=== PATIENT | male | born 1980 | race Caucasian/White ===

== ENCOUNTER 2020-05-05 10:15 | Inpatient (IN) | payer OTHER ==
--- NOTE | 2020-05-05 11:07 | BHS.RME ---
Substance Use & Tx History - Substance Use History Heroin Substance amount: 9-15 bags Frequency of use: Daily Substance route: Inhalation (ex: sniffing or snorting) Date of Last Use: 05/05/20 (First use age 38 y. NO ODs. NO Narcan at home) Cocaine-Crack Substance amount: 2 grams powder or $100 to $150 crack Frequency of use: Daily Substance route: Inhalation (ex: sniffing or snorting), Smoking Date of Last Use: 05/05/20 (First use age 26 y) Xanax Substance amount: 2-4 sticks of 2 mg each stick Frequency of use: Daily Substance route: Oral Date of Last Use: 05/04/20 (First use age 21 y) Nicotine Substance amount: 1/2 ppd Frequency of use: Daily Substance route: Smoking Date of Last Use: 05/05/20 (First use age 13y) - Last Treatment Date of last treatment: 2010 at [facility]. 3 mos ago in [place] Where was last treatment: Detox Physical/Psych/Mental Status - Behavior General Behavior: Decreased activity Eye Contact: Normal - Cooperativeness Cooperativeness: Cooperative - Thinking Thought Processes: Tight Thought content: Future oriented - Physical Health Problems Is patient presently having any pain?: No Does patient presently have any injuries (include location): No Does patient currently have a fever: No COWS - Scale Resting Pulse: 0= [place] 80 or Below Sweatin= Chills/Flushing Restless Observation: 0= Sits Still Pupil Size: 0= Normal to Room Light Bone or Joint Aches: 1= Mild Discomfort Runny Nose/ Eye Tearin= Nasal Congestion GI Upset > 30mins: 2= Nausea/Diarrhea Tremor Observation: 2= Slight Tremor Visible Yawning Observation: 0= None Anxiety or Irritability: 2=Irritable/Anxious Goose Flesh Skin: 0=Smooth Skin COWS Score: 9
[2020-05-05 12:17] VITALS: BMI 56.8
--- NOTE | 2020-05-05 12:38 | HP ---
COWS - Scale Resting Pulse: 0= [place] 80 or Below Sweatin= Chills/Flushing Restless Observation: 0= Sits Still Pupil Size: 0= Normal to Room Light Bone or Joint Aches: 1= Mild Discomfort Runny Nose/ Eye Tearin= Nasal Congestion GI Upset > 30mins: 2= Nausea/Diarrhea Tremor Observation: 2= Slight Tremor Visible Yawning Observation: 0= None Anxiety or Irritability: 2=Irritable/Anxious Goose Flesh Skin: 0=Smooth Skin COWS Score: 9 CIWA Score - Admission Criteria OASAS Guidelines: Admission for Medically Managed Detox: Requires at least one of the followin. CIWA greater than 12 2. Seizures within the past 24 hours 3. Delirium tremens within the past 24 hours 4. Hallucinations within the past 24 hours 5. Acute intervention needed for co occurring medical disorder 6. Acute intervention needed for co occurring psychiatric disorder 7. Severe withdrawal that cannot be handled at a lower level of care (continued vomiting, continued diarrhea, abnormal vital signs) requiring intravenous medication and/or fluids 8. Admitting History and Physical - Admission Chief Complaint: Mr. Barry is a 39 yo man who presents to [facility] stating he is here "trying to get off heroin". He admits to polysubstance use. He requests admission to detox. History of Present Illness: Mr. Barry is a 39 yo man who presents to [facility] stating he is here "trying to get off heroin". He admits to polysubstance use. He requests admission to detox. PMH/PSH/Psych/Legal: none Legal: none Substance Use History Heroin Substance amount: 9-15 bags Frequency of use: Daily Substance route: Inhalation (ex: sniffing or snorting) Date of Last Use: 05/05/20 (First use age 38 y. NO ODs. NO Narcan at home) Cocaine-Crack Substance amount: 2 grams powder or $100 to $150 crack Frequency of use: Daily Substance route: Inhalation (ex: sniffing or snorting), Smoking Date of Last Use: 05/05/20 (First use age 26 y) Xanax Substance amount: 2-4 sticks of 2 mg each stick Frequency of use: Daily Substance route: Oral Date of Last Use: 05/04/20 (First use age 21 y) Nicotine Substance amount: 1/2 ppd Frequency of use: Daily Substance route: Smoking Date of Last Use: 05/05/20 (First use age 13y) Methadone: denies use - Last Treatment Date of last treatment: [address] [facility]. 3 mos ago in [place] Where was last treatment: Detox Clyde Barry, 1980 Search Date: 05/05/2020 13:06:50 PM The Drug Utilization Report below displays all of the controlled substance prescriptions, if any, that your patient has filled in the last twelve months. The information displayed on this report is compiled from pharmacy submissions to the Department, and accurately reflects the information as submitted by the pharmacies. This report was requested by: Nora Prince | Reference #: [id number] There are no results for the search terms that you entered. Meets criteria: poor recovery environment, high risk of relapse, high risk of overdose History Source: Patient Limitations to Obtaining History: Other (falls asleep easily) - Smoking History Smoking history: Current every day smoker Admission [facility] Allergies/Adverse Reactions: Allergies Allergy/AdvReac Type Severity Reaction Status Date / Time No Known Allergies Allergy Verified 05/05/20 12:13 Exam Limitations: No Limitations - Ebola screening Have you traveled outside of the country in the last 21 days: No Have you been sick,other than usual withdrawal symptoms: No Do you have a fever: No - Review of Systems Constitutional: Changes in sleep (pt aware he has breathing problems when sleeping, improves with side lying position), Weight Stable (morbid obesity) EENT: reports: Nose Congestion Respiratory: reports: No Symptoms reported Cardiac: reports: No Symptoms Reported GI: reports: No Symptoms Reported : reports: No Symptoms Reported Musculoskeletal: reports: Other (swelling in both legs he attributes to being on his feet) Integumentary: reports: Other (erythma of skin bilateral inguinal and lower abdominal area, he attributes to "heat rash") Neuro: reports: No Symptoms reported Endocrine: reports: No Symptoms Reported Hematology: reports: No Symptoms Reported Psychiatric: reports: Anxious Patient History - Patient Medical History Hx Asthma: No Hx Chronic Obstructive Pulmonary Disease (COPD): No Hx Cardiac Disorders: No Hx Hypertension: No Hx Seizures: No Hx Diabetes: No Hx Gastrointestinal Disorders: No Hx Genitourinary Disorders: No Hx Sexually Transmitted Disorders: No Hx Renal Disease (ESRD): No Hx Depression: No Hx Suicide Attempt: No Hx Schizophrenia: No - Patient Surgical History Past Surgical History: No Hx Neurologic Surgery: No Hx Cataract Extraction: No Hx Cardiac Surgery: No Hx Lung Surgery: No Hx Breast Surgery: No Hx Breast Biopsy: No Hx Abdominal Surgery: No Hx Appendectomy: No Hx Cholecystectomy: No Hx Genitourinary Surgery: No Hx Section: No Hx Orthopedic Surgery: No Anesthesia Reaction: No - Smoking Cessation Smoking history: Current every day smoker Have you smoked in the past 12 months: Yes Aproximately how many cigarettes per day: 10 Hx Chewing Tobacco Use: No Initiated information on smoking cessation: Yes 'Breaking Loose' booklet given: 05/05/20 - Substances abused Heroin Substance route: Inhalation Frequency: Daily Amount used: 9-15 BAGS Age of first use: 38 Date of last use: 05/05/20 Cocaine Substance route: Inhalation Frequency: Daily Amount used: 2 GRAMS Age of first use: 26 Date of last use: 05/05/20 Alprazolam (Xanax) Substance route: Oral Frequency: Daily Amount used: 2-4 STICKS Age of first use: 21 Date of last use: 05/04/20 Admission Physical Exam BHS - Vital Signs Vital Signs: Vital Signs - 24 hr 05/05/20 12:13 Temperature 98.0 F Pulse Rate 72 Respiratory 14 Rate Blood Pressure 133/74 - Physical General Appearance: Yes: No Apparent Distress, Other (obese) HEENTM: Yes: EOMI, Hearing grossly Normal, Normocephalic, Normal Voice Respiratory: Yes: Lungs Clear, No Respiratory Distress, No Accessory Muscle Use, Other (falls asleep easily, has 8 sec apnea noted, loud sonorous respirations) Neck: Yes: Within Normal Limits, Supple Breast: Yes: Breast Exam Deferred Cardiology: Yes: Regular Rhythm, Regular Rate Abdominal: Yes: Non Tender, Soft, Decreased BS, Protuberent Genitourinary: Yes: Other (deferred) Back: Yes: Normal Inspection Musculoskeletal: Yes: Gait Steady Extremities: Yes: Swelling (bilateral feet and lower legs, nonpitting, slight erythema, no cords, no streaks, no varicosities) Neurological: Yes: Alert, Normal Response Integumentary: Yes: Rash (red inguinal and lower abdomen, no drainage, no pustules/macules) - Diagnostic (1) Cocaine abuse Current Visit: Yes Status: Acute Comment: 1. substance use education (2) Sedative, hypnotic or anxiolytic use disorder, mild, abuse Current Visit: Yes Status: Acute Comment: 1. Valium detox protocol (3) Nicotine dependence Current Visit: Yes Status: Acute Qualifiers: Nicotine product type: cigarettes Substance use status: uncomplicated Qualified Code(s): F17.210 - Nicotine dependence, cigarettes, uncomplicated Comment: 1. Nicotine replacement therapy 2. Smoking cessation pamphlet (4) Opioid withdrawal Current Visit: Yes Status: Acute Comment: 1. Admit, detox, methadone 2. EKG 3. Routine labs Cleared for Admission S - Detox or Rehab [facility] Level of Care: Medically Managed Detox Regimen/Protocol: Methadone, Valium Breathalyzer - Breathalyzer Breathalyzer: 0 Urine Drug Screen - Test Device Lot number: [id number] Expiration date: 11/26/21 - Control Is test valid?: Yes - Results Drug screen NEGATIVE: No Urine drug screen results: FELIZ-Cocaine, FEN-Fentanyl, MOP-Opiates, MTD- Methadone, BZO-Benzodiazepines Inpatient Rehab Admission - Rehab Decision to Admit Inpatient rehab admission?: No
[2020-05-05] MEDS ORDERED: ONDANSETRON *ODT* 4 MG TABLET SL PRN (13:09)
[2020-05-05] MEDS ORDERED: ACETAMINOPHEN 325 MG TABLET (FP) PO PRN ×2 (13:09)
[2020-05-05] MEDS ORDERED: METHADONE HCL 10 MG TABLET (FOR DETOX USE ONLY) PO ONE (13:09)
[2020-05-05] MEDS ORDERED: diazePAM 5 MG TABLET PO PRN (13:09)
[2020-05-05] MEDS ORDERED: METHOCARBAMOL 500 MG TABLET PO PRN (13:09)
[2020-05-05] MEDS ORDERED: BISMUTH SUBSALICYLATE 524 MG/30 ML UD PO PRN (13:09)
[2020-05-05] MEDS ORDERED: MENTHOL/PHENOL 1 EACH UD MM PRN (13:09)
[2020-05-05] MEDS ORDERED: MAGNESIUM HYDROX 2400MG/30ML ORAL SUSPENSION 30 ML CUP PO PRN (13:09)
[2020-05-05] MEDS ORDERED: IBUPROFEN 400 MG TABLET (FP) PO PRN (13:09)
[2020-05-05] MEDS ORDERED: MAG HYDROX/AL HYDROX/SIMETH 30 ML UNIT-DOSE CUP PO PRN (13:09)
[2020-05-05] MEDS ORDERED: NICOTINE POLACRILEX 2 MG GUM BUC PRN (13:09)
[2020-05-05] MEDS ORDERED: MAGNESIUM CITRATE 300 ML BOTTLE PO PRN (13:09)
[2020-05-05] MEDS: NICOTINE 14 MG/24 HOURS TOPICAL PATCH TD SCH (14:19)
[2020-05-05] MEDS: hydrOXYzine PAMOATE 25 MG CAPSULE (FP) PO SCH ×3 (14:26→22:16)
[2020-05-05 14:46] LABS: HEMATOCRIT 37.5 % (35.4-49); HEMOGLOBIN 12.5 GM/dL (11.7-16.9); MCH 29.1 pg (25.7-33.7); MCHC 33.3 g/dl (32.0-35.9); MEAN CELL VOLUME 87.4 fl (80-96); MEAN PLT VOLUME 8.8 fl (7.5-11.1); PLATELET COUNT 255 K/MM3 (134-434); RBC 4.29 M/mm3 (4.00-5.60); RDW 14.8 % (11.9-15.9); WHITE BLOOD COUNT 8.7 K/mm3 (4.0-10.0)
[2020-05-05 14:57] LABS: ALBUMIN 3.2 g/dl (3.4-5.0); BILIRUBIN,TOTAL 0.4 mg/dL (0.2-1); CALCIUM 8.2 mg/dL (8.5-10.1); POTASSIUM 3.9 mmol/L (3.5-5.1); TOT PROT 6.6 g/dl (6.4-8.2)
[2020-05-05] MEDS: diazePAM 5 MG TABLET PO SCH ×2 (18:03→22:16)
[2020-05-05] MEDS: THIAMINE HCL 100 MG TABLET (FP) PO SCH (22:16)
[2020-05-05] MEDS: MELATONIN 5 MG TABLETS PO SCH (22:17)
[2020-05-06] MEDS: hydrOXYzine PAMOATE 25 MG CAPSULE (FP) PO SCH (06:38)
[2020-05-06] MEDS: diazePAM 5 MG TABLET PO SCH ×4 (06:38→22:46)
[2020-05-06] MEDS ORDERED: hydrOXYzine PAMOATE 25 MG CAPSULE (FP) PO PRN (08:34)
--- NOTE | 2020-05-06 09:03 | EKG ---
Test Reason : Blood Pressure : / mmHG Vent. Rate : 070 BPM Atrial Rate : 070 BPM P-R Int : 138 ms QRS Dur : 090 ms QT Int : 446 ms P-R-T Axes : 049 018 090 degrees QTc Int : 481 ms NORMAL SINUS RHYTHM CANNOT RULE OUT INFERIOR INFARCT , AGE UNDETERMINED ABNORMAL ECG NO PREVIOUS ECGS AVAILABLE Confirmed by MD AZAEL, ABIMAEL ([id number]) on 05/06/2020 9:02:41 AM Referred By: Confirmed By:ABIMAEL ADDISON MD
[2020-05-06] MEDS ORDERED: METHADONE HCL 5 MG TABLET (FOR DETOX USE ONLY) ONE (09:20)
[2020-05-06] MEDS ORDERED: METHADONE HCL 10 MG TABLET (FOR DETOX USE ONLY) ONE (09:20)
--- NOTE | 2020-05-06 09:50 | PN ---
S CIWA - CIWA Score Nausea/Vomitin Muscle Tremors: 3 Anxiety: 3 Agitation: 2 Paroxysmal Sweats: No Perspiration Orientation: 0-Oriented Tacttile Disturbances: 1-Very Mild Itch/Numbness Auditory Disturbances: 0-None Visual Disturbances: 0-None Headache: 2-Mild CIWA-Ar Total Score: 13 BHS COWS - Scale Resting Pulse: 1= [place] 81-100 Sweatin= No chills or Flushing Restless Observation: 0= Sits Still Pupil Size: 1= Pupils >than Normal Bone or Joint Aches: 2= Severe Diffuse Aches Runny Nose/ Eye Tearin= Runny Nose/Eyes GI Upset > 30mins: 1= Stomach Cramp Tremor Observation of Outstretched Hands: 2= Slight Tremor Visible Yawning Observation: 1= 1-2x During Session Anxiety or Irritability: 2=Irritable/Anxious Goose Flesh Skin: 0=Smooth Skin COWS Score: 12 S Progress Note (SOAP) Subjective: alert,irritable,anxious,interrupted sleep,pain in the body and back Objective: 05/06/20 12:01 Vital Signs Temperature 99.2 F 05/06/20 08:42 Pulse Rate 81 05/06/20 08:42 Respiratory Rate 20 05/06/20 08:42 Blood Pressure 141/100 05/06/20 08:42 O2 Sat by Pulse Oximetry (%) 96 05/06/20 08:42 Laboratory Last Values WBC 8.7 K/mm3 (4.0-10.0) 05/05/20 13:15 RBC 4.29 M/mm3 (4.00-5.60) 05/05/20 13:15 Hgb 12.5 GM/dL (11.7-16.9) 05/05/20 13:15 Hct 37.5 % (35.4-49) 05/05/20 13:15 MCV 87.4 fl (80-96) 05/05/20 13:15 MCH 29.1 pg (25.7-33.7) 05/05/20 13:15 MCHC 33.3 g/dl (32.0-35.9) 05/05/20 13:15 RDW 14.8 % (11.9-15.9) 05/05/20 13:15 Plt Count 255 K/MM3 (134-434) 05/05/20 13:15 MPV 8.8 fl (7.5-11.1) 05/05/20 13:15 Sodium 137 mmol/L (136-145) 05/05/20 13:15 Potassium 3.9 mmol/L (3.5-5.1) 05/05/20 13:15 Chloride 105 mmol/L (98-107) 05/05/20 13:15 Carbon Dioxide 26 mmol/L (21-32) 05/05/20 13:15 Anion Gap 6 MMOL/L (8-16) L 05/05/20 13:15 BUN 13.0 mg/dL (7-18) 05/05/20 13:15 Creatinine 1.0 mg/dL (0.55-1.3) 05/05/20 13:15 Est GFR (CKD-EPI)AfAm 110.17 05/05/20 13:15 Est GFR (CKD-EPI)NonAf 95.05 05/05/20 13:15 Random Glucose 237 mg/dL (74-106) H 05/05/20 13:15 Calcium 8.2 mg/dL (8.5-10.1) L 05/05/20 13:15 Total Bilirubin 0.4 mg/dL (0.2-1) 05/05/20 13:15 AST 20 U/L (15-37) 05/05/20 13:15 ALT 35 U/L (13-61) 05/05/20 13:15 Alkaline Phosphatase 111 U/L (45-117) 05/05/20 13:15 Total Protein 6.6 g/dl (6.4-8.2) 05/05/20 13:15 Albumin 3.2 g/dl (3.4-5.0) L 05/05/20 13:15 Syphilis Serology Non-reactive (NONREACTIVE) 05/05/20 13:15 COVID-19 (GUSTAVO) Not detected (Not Detected) 05/05/20 13:15 Assessment: 05/06/20 12:02 withdrawal symptom Plan: continue detox methadone and valium regimen,fasting glucose in am
[2020-05-06] MEDS ORDERED: METHADONE (DETOX) 20 MG, METHADONE (DETOX) 5 MG PO ONE (10:00)
[2020-05-06] MEDS: NICOTINE 14 MG/24 HOURS TOPICAL PATCH TD SCH (12:08)
[2020-05-06] MEDS: PRENATAL VITAMINS W/ FOLIC ACID TABLET (FP) PO SCH (12:08)
[2020-05-06] MEDS: cloNIDine HCL 0.1 MG TABLET PO PRN (22:45)
[2020-05-06] MEDS: THIAMINE HCL 100 MG TABLET (FP) PO SCH (22:46)
[2020-05-07] MEDS: MELATONIN 5 MG TABLETS PO SCH ×2 (00:25→22:38)
[2020-05-07] MEDS: diazePAM 5 MG TABLET PO SCH ×3 (07:24→22:36)
[2020-05-07] MEDS ORDERED: METHADONE HCL 10 MG TABLET (FOR DETOX USE ONLY) PO ONE (10:00)
[2020-05-07] MEDS: PRENATAL VITAMINS W/ FOLIC ACID TABLET (FP) PO SCH (10:00)
[2020-05-07] MEDS: NICOTINE 14 MG/24 HOURS TOPICAL PATCH TD SCH (10:00)
--- NOTE | 2020-05-07 11:21 | PN ---
S CIWA - CIWA Score Nausea/Vomitin-No Nausea/No Vomiting Muscle Tremors: 3 Anxiety: 2 Agitation: 3 Paroxysmal Sweats: 2 Orientation: 0-Oriented Tacttile Disturbances: 0-None Auditory Disturbances: 0-None Visual Disturbances: 0-None Headache: 0-None Present CIWA-Ar Total Score: 10 BHS COWS - Scale Resting Pulse: 0= [place] 80 or Below Sweatin= Chills/Flushing Restless Observation: 0= Sits Still Pupil Size: 0= Normal to Room Light Bone or Joint Aches: 1= Mild Discomfort Runny Nose/ Eye Tearin= None GI Upset > 30mins: 0= None Tremor Observation of Outstretched Hands: 1= Tremor [place], Not Seen Yawning Observation: 2= >3x During Session Anxiety or Irritability: 1=Feels Anxious/Irritable Goose Flesh Skin: 0=Smooth Skin COWS Score: 6 BHS Progress Note (SOAP) Subjective: sweats groggy tired interrupted sleep Objective: 05/07/20 11:20 Vital Signs Temperature 98.6 F 05/07/20 08:20 Pulse Rate 64 05/07/20 08:20 Respiratory Rate 22 H 05/07/20 08:20 Blood Pressure 167/79 05/07/20 08:20 O2 Sat by Pulse Oximetry (%) 96 05/07/20 08:20 Laboratory Tests 05/05/20 05/05/20 05/05/20 13:15 13:15 13:15 WBC 8.7 RBC 4.29 Hgb 12.5 Hct 37.5 MCV 87.4 MCH 29.1 MCHC 33.3 RDW 14.8 Plt Count 255 MPV 8.8 Sodium 137 Potassium 3.9 Chloride 105 Carbon Dioxide 26 Anion Gap 6 L BUN 13.0 Creatinine 1.0 Est GFR (CKD-EPI)AfAm 110.17 Est GFR (CKD-EPI)NonAf 95.05 Random Glucose 237 H Calcium 8.2 L Total Bilirubin 0.4 AST 20 ALT 35 Alkaline Phosphatase 111 Total Protein 6.6 Albumin 3.2 L Syphilis Serology Non-reactive COVID-19 (GUSTAVO) 05/05/20 13:15 WBC RBC Hgb Hct MCV MCH MCHC RDW Plt Count MPV Sodium Potassium Chloride Carbon Dioxide Anion Gap BUN Creatinine Est GFR (CKD-EPI)AfAm Est GFR (CKD-EPI)NonAf Random Glucose Calcium Total Bilirubin AST ALT Alkaline Phosphatase Total Protein Albumin Syphilis Serology COVID-19 (GUSTAVO) Not detected aaox3 lying in bed no acute distress Assessment: 05/07/20 11:20 withdrawals Plan: continue detox increase fluids
[2020-05-07] MEDS: cloNIDine HCL 0.1 MG TABLET PO PRN ×2 (14:24→22:36)
[2020-05-07] MEDS: THIAMINE HCL 100 MG TABLET (FP) PO SCH (22:36)
[2020-05-08] MEDS: diazePAM 5 MG TABLET PO SCH ×2 (06:24→17:29)
[2020-05-08] MEDS ORDERED: METHADONE HCL 5 MG TABLET (FOR DETOX USE ONLY) ONE (09:21)
[2020-05-08] MEDS ORDERED: METHADONE HCL 10 MG TABLET (FOR DETOX USE ONLY) ONE (09:21)
[2020-05-08] MEDS ORDERED: METHADONE (DETOX) 10 MG, METHADONE (DETOX) 5 MG PO ONE (10:00)
[2020-05-08] MEDS: PRENATAL VITAMINS W/ FOLIC ACID TABLET (FP) PO SCH (12:09)
--- NOTE | 2020-05-08 12:10 | PN ---
S CIWA - CIWA Score Nausea/Vomitin-No Nausea/No Vomiting Muscle Tremors: 2 Anxiety: 2 Agitation: 2 Paroxysmal Sweats: 2 Orientation: 0-Oriented Tacttile Disturbances: 0-None Auditory Disturbances: 0-None Visual Disturbances: 0-None Headache: 0-None Present CIWA-Ar Total Score: 8 BHS COWS - Scale Resting Pulse: 1= [place] 81-100 Sweatin= No chills or Flushing Restless Observation: 0= Sits Still Pupil Size: 0= Normal to Room Light Bone or Joint Aches: 1= Mild Discomfort Runny Nose/ Eye Tearin= None GI Upset > 30mins: 0= None Tremor Observation of Outstretched Hands: 1= Tremor [place], Not Seen Yawning Observation: 2= >3x During Session Anxiety or Irritability: 1=Feels Anxious/Irritable Goose Flesh Skin: 0=Smooth Skin COWS Score: 6 BHS Progress Note (SOAP) Subjective: sweats tired interrupted sleep Objective: 05/08/20 12:09 Vital Signs Temperature 96.8 05/08/20 10:00 Pulse Rate 81 05/08/20 10:00 Respiratory Rate 22 05/08/20 10:00 Blood Pressure 151/67 05/08/20 10:00 O2 Sat by Pulse Oximetry (%) 95 05/08/20 10:00 Laboratory Tests 05/05/20 05/05/20 05/05/20 13:15 13:15 13:15 WBC 8.7 RBC 4.29 Hgb 12.5 Hct 37.5 MCV 87.4 MCH 29.1 MCHC 33.3 RDW 14.8 Plt Count 255 MPV 8.8 Sodium 137 Potassium 3.9 Chloride 105 Carbon Dioxide 26 Anion Gap 6 L BUN 13.0 Creatinine 1.0 Est GFR (CKD-EPI)AfAm 110.17 Est GFR (CKD-EPI)NonAf 95.05 Random Glucose 237 H Calcium 8.2 L Total Bilirubin 0.4 AST 20 ALT 35 Alkaline Phosphatase 111 Total Protein 6.6 Albumin 3.2 L Syphilis Serology Non-reactive COVID-19 (GUSTAVO) 05/05/20 13:15 WBC RBC Hgb Hct MCV MCH MCHC RDW Plt Count MPV Sodium Potassium Chloride Carbon Dioxide Anion Gap BUN Creatinine Est GFR (CKD-EPI)AfAm Est GFR (CKD-EPI)NonAf Random Glucose Calcium Total Bilirubin AST ALT Alkaline Phosphatase Total Protein Albumin Syphilis Serology COVID-19 (GUSTAVO) Not detected aaox3 lying in bed no acute distress Assessment: 05/08/20 12:10 withdrawals Plan: continue detox
[2020-05-08] MEDS: NICOTINE 14 MG/24 HOURS TOPICAL PATCH TD SCH (12:20)
[2020-05-08] MEDS: MELATONIN 5 MG TABLETS PO SCH (22:25)
[2020-05-08] MEDS: THIAMINE HCL 100 MG TABLET (FP) PO SCH (22:25)
[2020-05-09] MEDS ORDERED: diazePAM 5 MG TABLET PO ONE (06:00)
[2020-05-09] MEDS ORDERED: METHADONE HCL 10 MG TABLET (FOR DETOX USE ONLY) PO ONE (10:00)
[2020-05-09] MEDS: NICOTINE 14 MG/24 HOURS TOPICAL PATCH TD SCH (10:59)
[2020-05-09] MEDS: PRENATAL VITAMINS W/ FOLIC ACID TABLET (FP) PO SCH (10:59)
--- NOTE | 2020-05-09 11:08 | PN ---
[facility] CIWA - CIWA Score Nausea/Vomitin-No Nausea/No Vomiting Muscle Tremors: 1-None Visible, but [place] Anxiety: 1-Mildly Anxious Agitation: 1-Slight > Activity Paroxysmal Sweats: No Perspiration Orientation: 0-Oriented Tacttile Disturbances: 0-None Auditory Disturbances: 0-None Visual Disturbances: 0-None Headache: 0-None Present CIWA-Ar Total Score: 3 S COWS - Scale Resting Pulse: 0= [place] 80 or Below Sweatin= Chills/Flushing Restless Observation: 0= Sits Still Pupil Size: 0= Normal to Room Light Bone or Joint Aches: 1= Mild Discomfort Runny Nose/ Eye Tearin= None GI Upset > 30mins: 0= None Tremor Observation of Outstretched Hands: 1= Tremor [place], Not Seen Yawning Observation: 0= None Anxiety or Irritability: 1=Feels Anxious/Irritable Goose Flesh Skin: 0=Smooth Skin COWS Score: 4 [facility] Progress Note (SOAP) Subjective: Complaints of mild body aches, tremors and anxiety. Objective: 05/09/20 11:07 Vital Signs 05/09/20 05/09/20 05:43 08:55 Temperature 97.5 F L 97.3 F L Pulse Rate 86 73 Respiratory 16 20 Rate Blood Pressure 180/70 H 117/60 O2 Sat by Pulse 96 95 Oximetry (%) Laboratory Last Values WBC 8.7 K/mm3 (4.0-10.0) 05/05/20 13:15 RBC 4.29 M/mm3 (4.00-5.60) 05/05/20 13:15 Hgb 12.5 GM/dL (11.7-16.9) 05/05/20 13:15 Hct 37.5 % (35.4-49) 05/05/20 13:15 MCV 87.4 fl (80-96) 05/05/20 13:15 MCH 29.1 pg (25.7-33.7) 05/05/20 13:15 MCHC 33.3 g/dl (32.0-35.9) 05/05/20 13:15 RDW 14.8 % (11.9-15.9) 05/05/20 13:15 Plt Count 255 K/MM3 (134-434) 05/05/20 13:15 MPV 8.8 fl (7.5-11.1) 05/05/20 13:15 Sodium 137 mmol/L (136-145) 05/05/20 13:15 Potassium 3.9 mmol/L (3.5-5.1) 05/05/20 13:15 Chloride 105 mmol/L (98-107) 05/05/20 13:15 Carbon Dioxide 26 mmol/L (21-32) 05/05/20 13:15 Anion Gap 6 MMOL/L (8-16) L 05/05/20 13:15 BUN 13.0 mg/dL (7-18) 05/05/20 13:15 Creatinine 1.0 mg/dL (0.55-1.3) 05/05/20 13:15 Est GFR (CKD-EPI)AfAm 110.17 05/05/20 13:15 Est GFR (CKD-EPI)NonAf 95.05 05/05/20 13:15 Random Glucose 237 mg/dL (74-106) H 05/05/20 13:15 Calcium 8.2 mg/dL (8.5-10.1) L 05/05/20 13:15 Total Bilirubin 0.4 mg/dL (0.2-1) 05/05/20 13:15 AST 20 U/L (15-37) 05/05/20 13:15 ALT 35 U/L (13-61) 05/05/20 13:15 Alkaline Phosphatase 111 U/L (45-117) 05/05/20 13:15 Total Protein 6.6 g/dl (6.4-8.2) 05/05/20 13:15 Albumin 3.2 g/dl (3.4-5.0) L 05/05/20 13:15 Syphilis Serology Non-reactive (NONREACTIVE) 05/05/20 13:15 COVID-19 (GUSTAVO) Not detected (Not Detected) 05/05/20 13:15 Labs notes. Assessment: 05/09/20 11:07 Alert and oriented x 3, in no acute distress. Full ROM, ambulating in the unit without assistance. Skin was to touch with any lesions. Mild withdrawal symptoms. Plan: Continue detox protocol. D/C in AM
[2020-05-09] MEDS: MELATONIN 5 MG TABLETS PO SCH (23:06)
[2020-05-09] MEDS: THIAMINE HCL 100 MG TABLET (FP) PO SCH (23:07)
[2020-05-10] MEDS ORDERED: METHADONE HCL 5 MG TABLET (FOR DETOX USE ONLY) PO ONE (06:00)
[2020-05-10 11:24] VITALS: BP 127/95; PULSE 69; TEMP 98.1
[2020-05-10] MEDS: PRENATAL VITAMINS W/ FOLIC ACID TABLET (FP) PO SCH (11:27)
[2020-05-10] MEDS: NICOTINE 14 MG/24 HOURS TOPICAL PATCH TD SCH (11:27)
--- NOTE | 2020-05-10 18:26 | DS ---
[facility] Detox Discharge Summary Admission Date: 05/05/20 - History Present History: Cocaine Dependence, Opioid Dependence, Sedative Dependence Additional Comments: Pt completed detox successfully and discharged safely. Pt accepted admission to [facility] inpatient rehab. Pertinent Past History: Nicotine dependence - Physical Exam Results Vital Signs: Vital Signs Temperature 98.1 F 05/10/20 09:50 Pulse Rate 69 05/10/20 09:50 Respiratory Rate 20 05/10/20 09:50 Blood Pressure 127/95 05/10/20 09:50 O2 Sat by Pulse Oximetry (%) 95 05/10/20 09:50 Pertinent Admission Physical Exam Findings: Withdrawal sxs Laboratory Tests 05/05/20 05/05/20 05/05/20 13:15 13:15 13:15 WBC 8.7 RBC 4.29 Hgb 12.5 Hct 37.5 MCV 87.4 MCH 29.1 MCHC 33.3 RDW 14.8 Plt Count 255 MPV 8.8 Sodium 137 Potassium 3.9 Chloride 105 Carbon Dioxide 26 Anion Gap 6 L BUN 13.0 Creatinine 1.0 Est GFR (CKD-EPI)AfAm 110.17 Est GFR (CKD-EPI)NonAf 95.05 Random Glucose 237 H Calcium 8.2 L Total Bilirubin 0.4 AST 20 ALT 35 Alkaline Phosphatase 111 Total Protein 6.6 Albumin 3.2 L Syphilis Serology Non-reactive COVID-19 (GUSTAVO) 05/05/20 13:15 WBC RBC Hgb Hct MCV MCH MCHC RDW Plt Count MPV Sodium Potassium Chloride Carbon Dioxide Anion Gap BUN Creatinine Est GFR (CKD-EPI)AfAm Est GFR (CKD-EPI)NonAf Random Glucose Calcium Total Bilirubin AST ALT Alkaline Phosphatase Total Protein Albumin Syphilis Serology COVID-19 (GUSTAVO) Not detected Labs reviewed - Treatment Hospital Course: Detox Protocol Followed, Detoxed Safely, Responded well, Discharged Condition Good, Rehab Referral Accepted - Medication Discharge Medications: Ambulatory Orders NK [No Known Home Medication] 05/05/20 - Diagnosis (1) Cocaine abuse Status: Acute (2) Nicotine dependence Status: Chronic Qualifiers: Nicotine product type: cigarettes Substance use status: uncomplicated Qualified Code(s): F17.210 - Nicotine dependence, cigarettes, uncomplicated (3) Opioid withdrawal Status: Acute (4) Sedative, hypnotic or anxiolytic use disorder, mild, abuse Status: Acute - AMA Did Patient Leave Against Medical Advice: No (Patient accepted admission to [facility] rehab)
== END 2020-05-10 12:53 | disposition other institution (70) | DRG 773 ==
LOC: YASAS 10:15 → Y6N 12:31
PROVIDERS: ADMIT Allergy & Immunology; ATTEND Allergy & Immunology
PROC: HZ2ZZZZ Detoxification Services for Substance Abuse Treatment (ICD-10-PCS; principal; 2020-05-05)
DX: F11.23 Opioid dependence with withdrawal (principal); F13.230 Sedative, hypnotic or anxiolytic dependence with withdrawal, uncomplicated; F14.20 Cocaine dependence, uncomplicated; F17.210 Nicotine dependence, cigarettes, uncomplicated; E66.01 Morbid (severe) obesity due to excess calories; Z68.43 Body mass index [BMI] 50.0-59.9, adult; R60.0 Localized edema; R21 Rash and other nonspecific skin eruption
CPT/HCPCS: 36415; 80053; 85027; 86780; 93005; 93010; J0735; U0003

== ENCOUNTER 2020-05-10 12:47 | Inpatient (IN) | payer OTHER ==
[2020-05-10] MEDS ORDERED: MAG HYDROX/AL HYDROX/SIMETH 30 ML UNIT-DOSE CUP PO PRN (16:48)
[2020-05-10] MEDS ORDERED: MAGNESIUM HYDROX 2400MG/30ML ORAL SUSPENSION 30 ML CUP PO PRN (16:48)
[2020-05-10] MEDS ORDERED: ACETAMINOPHEN 325 MG TABLET (FP) PO PRN (16:48)
[2020-05-10] MEDS ORDERED: NICOTINE POLACRILEX 2 MG GUM BUC PRN (16:48)
[2020-05-10] MEDS ORDERED: IBUPROFEN 400 MG TABLET (FP) PO PRN (16:48)
[2020-05-10] MEDS ORDERED: MAGNESIUM CITRATE 300 ML BOTTLE PO PRN (16:48)
[2020-05-10] MEDS ORDERED: LOPERAMIDE HCL 2 MG CAPSULE PO PRN (16:48)
[2020-05-10] MEDS ORDERED: guaiFENesin 200 MG/10 ML 10 ML UNIT-DOSE CUPS PO PRN (16:48)
[2020-05-10] MEDS ORDERED: MENTHOL/PHENOL 1 EACH UD MM PRN (16:48)
[2020-05-10] MEDS ORDERED: P-EPHED 60MG/TRIPROLIDI 2.5MG TABLET PO PRN (16:48)
[2020-05-10] MEDS: THIAMINE HCL 100 MG TABLET (FP) PO SCH (21:43)
[2020-05-10] MEDS: hydrOXYzine PAMOATE 25 MG CAPSULE (FP) PO PRN (21:43)
[2020-05-10] MEDS: MELATONIN 5 MG TABLETS PO SCH (21:44)
[2020-05-11] MEDS: NICOTINE 7 MG/24 HOURS TOPICAL PATCH TD SCH (09:45)
[2020-05-11] MEDS: PRENATAL VITAMINS W/ FOLIC ACID TABLET (FP) PO SCH (09:45)
--- NOTE | 2020-05-11 14:20 | HP ---
YUMIKO SANTO Rehab Assess/Revision - Admission History Admitted to Rehab from: Date of Admission to Rehab: 05/10/20 - Vital signs Vital Signs: Vital Signs Period Temp Pulse Resp BP Sys/Mederos Pulse Ox Last 24 Hr 95-95 - Findings Detox History & Physical reviewed: Yes Concur with findings: Yes Comments/Additional Findings: Pt is a 39 y/o male with a hx of CRISTINO-Heroin, Cocaine/crack, xanax, nocitine admitted to rehab after completing heroin detox on yesterday. PMHx:Morbid Obesity. Psych hx;Schizoaffective/Bipolar disorder-Pt declined to see psych eval at this time. Alert o x 3. nad. oob ambulating with steady gait. extremities;no edema; skin intact. s/p detox. maintain safety. increase po fluids. Inpatient Rehab Admission - Rehab Decision to Admit Inpatient rehab admission?: Yes - Initial Determination Are CD services needed?: Yes Free of communicable disease: Yes Not in need of hospitalization: Yes - Rehab Admission Criteria Previous failed treatment: Yes Poor recovery environment: Yes Comorbidities: Yes Lacks judgement: Yes Patient is meeting Inpatient Rehab admission criteria:: Yes
[2020-05-11] MEDS: THIAMINE HCL 100 MG TABLET (FP) PO SCH (22:54)
[2020-05-11] MEDS: MELATONIN 5 MG TABLETS PO SCH (22:54)
[2020-05-12] MEDS: NICOTINE 7 MG/24 HOURS TOPICAL PATCH TD SCH (11:00)
[2020-05-12] MEDS: PRENATAL VITAMINS W/ FOLIC ACID TABLET (FP) PO SCH (11:00)
[2020-05-12] MEDS ORDERED: MASKS NR ONE (18:06)
[2020-05-12] MEDS: THIAMINE HCL 100 MG TABLET (FP) PO SCH (21:31)
[2020-05-12] MEDS: hydrOXYzine PAMOATE 25 MG CAPSULE (FP) PO PRN (21:31)
[2020-05-12] MEDS: MELATONIN 5 MG TABLETS PO SCH (21:31)
[2020-05-13] MEDS: NICOTINE 7 MG/24 HOURS TOPICAL PATCH TD SCH (09:42)
[2020-05-13] MEDS: PRENATAL VITAMINS W/ FOLIC ACID TABLET (FP) PO SCH (09:43)
[2020-05-13] MEDS: THIAMINE HCL 100 MG TABLET (FP) PO SCH (21:33)
[2020-05-13] MEDS: MELATONIN 5 MG TABLETS PO SCH (21:33)
[2020-05-13] MEDS: hydrOXYzine PAMOATE 25 MG CAPSULE (FP) PO PRN (21:34)
[2020-05-14] MEDS: NICOTINE 7 MG/24 HOURS TOPICAL PATCH TD SCH (11:13)
[2020-05-14] MEDS: PRENATAL VITAMINS W/ FOLIC ACID TABLET (FP) PO SCH (11:13)
[2020-05-14] MEDS: hydrOXYzine PAMOATE 25 MG CAPSULE (FP) PO PRN (21:31)
[2020-05-14] MEDS: THIAMINE HCL 100 MG TABLET (FP) PO SCH (21:31)
[2020-05-14] MEDS: MELATONIN 5 MG TABLETS PO SCH (21:31)
[2020-05-15] MEDS: PRENATAL VITAMINS W/ FOLIC ACID TABLET (FP) PO SCH (11:10)
[2020-05-15] MEDS: NICOTINE 7 MG/24 HOURS TOPICAL PATCH TD SCH (11:10)
--- NOTE | 2020-05-15 13:58 | CONSULT ---
[facility] Psychiatric Consult - Data Date of interview: 05/15/20 Admission source: 6N Identifying data: Mr Salinas is a 39 years old male, unemployed, domiciled referred from detox on 05/10/20 for inpatient rehabilitation treatment for opioid, cocaine and benzodiazepine Substance Abuse History: Reports history of heroin, crack cocaine and xanax use. Refer to addiction counselor's summary for further information Medical History: Significant for hypertension and morbid obesity. Smokes 10 cigarettes daily Psychiatric History: Patient is known for two previous admissions to this [facility]. He was very irritable, annoyed by physician underwriter's questioning. He reports being diagnosed with Bipolar Disorder more than 13 years ago. Reports 2 previous psychiatric hospitalizations both at [facility] in [place], [place]. Reports that his last psychiatric treatment was 3 years ago. He could not provide any information regarding psychotropic medications prescribed to him in the past, including name. Reports one previous suicidal attempt via self- mutilation(cut left wrist) in 2009. At present, denies experiencing psychotic, manic or depressive symptoms, S/H ideations. However, he is very irritable and reports sleeping poorly Physical/Sexual Abuse/Trauma History: Denies history of abuse as a child or DV relationship as an adult Mental Status Exam - Mental Status Exam Alert and Oriented to: Time, Place, Person Cognitive Function: Fair Patient Appearance: Disheveled Mood: Irritable Affect: Appropriate Patient Behavior: Cooperative (superficially) Speech Pattern: Clear Voice Loudness: Normal Thought Process: Intact, Goal Oriented Hallucinations: Denies Suicidal Ideation: Denies Homicidal Ideation: Denies Insight/Judgement: Fair Sleep: Poorly Appetite: Good Muscle strength/Tone: Normal Gait/Station: Normal Psychiatric Findings - Problem List ([place] 1, 2,3) (1) Bipolar disorder Current Visit: Yes Status: Chronic (2) Schizoaffective disorder Current Visit: Yes Status: Ruled-out (3) Substance induced mood disorder Current Visit: Yes Status: Acute (4) Substance-induced sleep disorder Current Visit: Yes Status: Acute (5) Opioid dependence Current Visit: Yes Status: Acute (6) Cocaine dependence Current Visit: Yes Status: Acute (7) Sedative hypnotic or anxiolytic dependence Current Visit: Yes Status: Acute (8) Nicotine dependence Current Visit: No Status: Chronic Qualifiers: Nicotine product type: cigarettes Substance use status: uncomplicated Qualified Code(s): F17.210 - Nicotine dependence, cigarettes, uncomplicated Comment: 1. Nicotine replacement therapy 2. Smoking cessation pamphlet (9) HTN (hypertension) Current Visit: Yes Status: Chronic (10) Morbid obesity Current Visit: Yes Status: Chronic - Initial Treatment Plan Initial Treatment Plan: 1) Start Belsora 10 mg po HS prn for insomnia. 2) Continue inpatient rehabilitation
[2020-05-15] MEDS: hydrOXYzine PAMOATE 25 MG CAPSULE (FP) PO PRN (19:15)
[2020-05-15] MEDS: THIAMINE HCL 100 MG TABLET (FP) PO SCH (21:29)
[2020-05-15] MEDS: MELATONIN 5 MG TABLETS PO SCH (21:29)
[2020-05-15] MEDS: SUVOREXANT 10 MG TABLET PO PRN (21:30)
[2020-05-16] MEDS: NICOTINE 7 MG/24 HOURS TOPICAL PATCH TD SCH (10:47)
[2020-05-16] MEDS: PRENATAL VITAMINS W/ FOLIC ACID TABLET (FP) PO SCH (10:47)
[2020-05-16] MEDS: MELATONIN 5 MG TABLETS PO SCH (21:28)
[2020-05-16] MEDS: THIAMINE HCL 100 MG TABLET (FP) PO SCH (21:28)
[2020-05-16] MEDS: SUVOREXANT 10 MG TABLET PO PRN (21:28)
[2020-05-16] MEDS: hydrOXYzine PAMOATE 25 MG CAPSULE (FP) PO PRN (21:28)
[2020-05-17] MEDS: NICOTINE 7 MG/24 HOURS TOPICAL PATCH TD SCH (10:22)
[2020-05-17] MEDS: PRENATAL VITAMINS W/ FOLIC ACID TABLET (FP) PO SCH (10:22)
[2020-05-17] MEDS: THIAMINE HCL 100 MG TABLET (FP) PO SCH (21:31)
[2020-05-17] MEDS: SUVOREXANT 10 MG TABLET PO PRN (21:31)
[2020-05-17] MEDS: MELATONIN 5 MG TABLETS PO SCH (21:31)
[2020-05-17] MEDS: hydrOXYzine PAMOATE 25 MG CAPSULE (FP) PO PRN (21:31)
[2020-05-18] MEDS: NICOTINE 7 MG/24 HOURS TOPICAL PATCH TD SCH (11:13)
[2020-05-18] MEDS: PRENATAL VITAMINS W/ FOLIC ACID TABLET (FP) PO SCH (11:13)
[2020-05-18] MEDS: hydrOXYzine PAMOATE 25 MG CAPSULE (FP) PO PRN ×2 (11:33→21:37)
[2020-05-18] MEDS: THIAMINE HCL 100 MG TABLET (FP) PO SCH (21:37)
[2020-05-18] MEDS: SUVOREXANT 10 MG TABLET PO PRN (21:37)
[2020-05-18] MEDS: MELATONIN 5 MG TABLETS PO SCH (22:02)
[2020-05-19] MEDS: NICOTINE 7 MG/24 HOURS TOPICAL PATCH TD SCH (10:36)
[2020-05-19] MEDS: PRENATAL VITAMINS W/ FOLIC ACID TABLET (FP) PO SCH (10:36)
[2020-05-19] MEDS: THIAMINE HCL 100 MG TABLET (FP) PO SCH (21:17)
[2020-05-19] MEDS: MELATONIN 5 MG TABLETS PO SCH (21:17)
[2020-05-19] MEDS: hydrOXYzine PAMOATE 25 MG CAPSULE (FP) PO PRN (21:17)
[2020-05-20] MEDS: PRENATAL VITAMINS W/ FOLIC ACID TABLET (FP) PO SCH (09:57)
[2020-05-20] MEDS: NICOTINE 7 MG/24 HOURS TOPICAL PATCH TD SCH (09:57)
--- NOTE | 2020-05-20 16:04 | PN ---
Nathan Progress Note Note: Psychiatry Attending's note : Called for renewal of belsomra. Chart reviewed. Medication verified. No report of adverse effects. Continuity requested by patient. Consent granted. Action : belsomra 10 mg po hs prn. Resumed.
[2020-05-20] MEDS: hydrOXYzine PAMOATE 25 MG CAPSULE (FP) PO PRN (21:29)
[2020-05-20] MEDS: MELATONIN 5 MG TABLETS PO SCH (21:29)
[2020-05-20] MEDS: THIAMINE HCL 100 MG TABLET (FP) PO SCH (21:29)
[2020-05-20] MEDS ORDERED: SUVOREXANT 10 MG TABLET PO PRN (22:00)
[2020-05-21 06:55] VITALS: BP 159/110; PULSE 70; TEMP 97.8
--- NOTE | 2020-05-21 08:56 | DS ---
[facility] Rehab Discharge Summary - [facility] Rehab Discharge Summary Admission Date: 05/10/20 Discharge Date: 05/21/20 - History Present History: Cocaine dependence, Opioid dependence, Sedative dependence Pertinent Past History: HTN(no med-??drug related) Morbid Obesity Bipolar Disorder Schizoaffective Disorder - Discharge Physical Exam Vital Signs: Vital Signs Temperature 97.8 F 05/21/20 06:20 Pulse Rate 70 05/21/20 06:20 Respiratory Rate 18 05/21/20 06:20 Blood Pressure 159/110 H 05/21/20 06:20 O2 Sat by Pulse Oximetry (%) 96 05/21/20 06:20 Pertinent Admission Physical Exam Findings: Unremarkable on admission - Treatment Discharge Condition: Discharge condition good, Rehabilitated safely, Responded well, Outpatient referral accepted Hospital Course: [place], [place] - Medication Discharge Medications: Ambulatory Orders NK [No Known Home Medication] 05/05/20 - Medication-Assisted Treatment (MAT) Medication-Assisted Treatment (MAT): No - Discharge Instructions Diet, activity, other medical instructions: Diet:Regular Activity: oob ad geovanna Other medical instructions:follow up with primary care in [place], [place]. Pt instructed on dietary and lifestyle changes and to address medical management with primary care - Diagnosis (1) Cocaine dependence Status: Chronic Qualifiers: Substance use status: uncomplicated Qualified Code(s): F14.20 - Cocaine dependence, uncomplicated (2) Opioid dependence Status: Chronic Qualifiers: Substance use status: uncomplicated Qualified Code(s): F11.20 - Opioid dependence, uncomplicated (3) Morbid obesity Status: Chronic (4) Nicotine dependence Status: Chronic Qualifiers: Nicotine product type: cigarettes Substance use status: uncomplicated Qualified Code(s): F17.210 - Nicotine dependence, cigarettes, uncomplicated (5) Sedative hypnotic or anxiolytic dependence Status: Chronic - Follow-up Referral Minutes to complete discharge: 25 - AMA Did Patient Leave Against Medical Advice: No Additional Comments: Pt reports he has no PCP but goes to ER in [place], [place] when needed.
[2020-05-21] MEDS: PRENATAL VITAMINS W/ FOLIC ACID TABLET (FP) PO SCH (09:10)
[2020-05-21] MEDS: NICOTINE 7 MG/24 HOURS TOPICAL PATCH TD SCH (09:10)
== END 2020-05-21 09:40 | disposition home or self-care (01) | DRG 772 ==
LOC: YASAS 12:47 → Y3W 12:48 → Y5N 13:03
PROVIDERS: ADMIT Allergy & Immunology; ATTEND Allergy & Immunology
PROC: HZ42ZZZ Group Counseling for Substance Abuse Treatment, Cognitive-Behavioral (ICD-10-PCS; principal; 2020-05-10)
DX: F11.20 Opioid dependence, uncomplicated (principal); F14.20 Cocaine dependence, uncomplicated; F13.20 Sedative, hypnotic or anxiolytic dependence, uncomplicated; F17.210 Nicotine dependence, cigarettes, uncomplicated; F25.9 Schizoaffective disorder, unspecified; F31.9 Bipolar disorder, unspecified; F19.24 Other psychoactive substance dependence with psychoactive substance-induced mood disorder; F19.282 Other psychoactive substance dependence with psychoactive substance-induced sleep disorder; I10 Essential (primary) hypertension; E66.01 Morbid (severe) obesity due to excess calories; Z68.42 Body mass index [BMI] 45.0-49.9, adult